=== PATIENT | female | born 1975 ===

== ENCOUNTER 2020-01-21 09:25 | Inpatient (IN) | payer OTHER ==
[~2020-01-21] VITALS: Ht 160 cm; Wt 62.6 kg
[2020-01-21] MEDS ORDERED: TENORMIN100 M1 PO (09:58)
== END 2020-01-28 10:04 | disposition home or self-care (01) | DRG 743 ==
LOC: O/R 01-26 05:30 → OB/GYN 01-26 05:30 → SURH 01-26 07:00 → OB/GYN 01-26 13:55
PROVIDERS: ADMIT Obstetrics & Gynecology; ATTEND Obstetrics & Gynecology
PROC: 0UT00ZZ Resection of Right Ovary, Open Approach (ICD-10-PCS; 2020-01-26)
PROC: 0UT50ZZ Resection of Right Fallopian Tube, Open Approach (ICD-10-PCS; 2020-01-26)
PROC: 0UT90ZZ Resection of Uterus, Open Approach (ICD-10-PCS; principal; 2020-01-26 07:00)
DX: D25.1 Intramural leiomyoma of uterus (principal); D25.2 Subserosal leiomyoma of uterus; N84.1 Polyp of cervix uteri; N72 Inflammatory disease of cervix uteri; N73.6 Female pelvic peritoneal adhesions (postinfective); N83.8 Other noninflammatory disorders of ovary, fallopian tube and broad ligament